=== PATIENT | female | born 1985 | race Caucasian/White ===

== ENCOUNTER 2017-02-01 12:11 | Day surgery (SDC) | payer OTHER ==
[2017-02-01] VITALS (9 sets, daily range): BP systolic 111–134; BP diastolic 75–81; PULSE 88–120; RESP 13–18; Ht 162.6 cm; Wt 72.0 kg
[~2017-02-01] VITALS: Ht 162.6 cm; Wt 72.0 kg
[2017-02-01] MEDS ORDERED: ROCURONIUM 50 MG INJ ONE (15:23)
[2017-02-01] MEDS ORDERED: PROPOFOL 20 ML ONE (15:23)
[2017-02-01] MEDS ORDERED: GLYCOPYRROLATE 0.4 MG INJ ONE ×2 (15:23→16:01)
[2017-02-01] MEDS ORDERED: LIDOCAINE 2% (SDV) 5 ML INJ ONE (15:23)
[2017-02-01] MEDS ORDERED: NEOSTIGMINE 3 MG/3 ML SYRINGE ONE ×2 (15:23→16:01)
[2017-02-01] MEDS ORDERED: SUCCINYLCHOLINE CHLORIDE 100 MG/5 ML SYG IV ONE (15:23)
[2017-02-01] MEDS ORDERED: MEPERIDINE 100 MG INJ ONE (15:23)
[2017-02-01] MEDS ORDERED: CEFAZOLIN 1 GM INJ ONE (15:27)
[2017-02-01] MEDS ORDERED: BACITRACIN/POLYMYXIN 28.35 GM OINT TOP ONE (15:33)
[2017-02-01] MEDS ORDERED: COCAINE 4% 4 ML TOP ONE (15:33)
[2017-02-01] MEDS ORDERED: LIDOCAINE 1%/EPI 30 ML INJ ONE (15:33)
--- NOTE | 2017-02-01 15:47 | HPN ---
Date/Time of Note Date/Time of Note DATE: 02/01/17 TIME: 15:47 Interval H&P Admission Note Pt. seen H&P reviewed: No system changes LOU TOMAS MD Feb 01, 2017 15:47
[2017-02-01] MEDS ORDERED: METOCLOPRAMIDE 10 MG INJ ONE (15:59)
[2017-02-01] MEDS ORDERED: ONDANSETRON 4 MG INJ ONE (15:59)
--- NOTE | 2017-02-01 16:18 | OPR ---
Date/Time of Note Date/Time of Note DATE: 02/01/17 TIME: 16:16 Operative Report Procedure Date: Feb 01, 2017 Preoperative Diagnosis DNS, ITH Postoperative Diagnosis Same Operation Performed Septoplasty with submucous resection of inferior turbinates. Surgeon: LOU TOMAS MD Anesthesia: general Estimated Blood Loss: minimal Complications: None Pt Condition Post Procedure: stable Disposition: PACU Indications Nasal congestion. Operative\Procedure Findings Description of procedure: The patient was identified in the holding area. We had a discussion to confirm understanding of all indications risks benefits alternatives and postoperative care associated with the operation. The patient signed informed consent was taken to the operating room. The patient was laid supine on the operating room table and general anesthesia was achieved without difficulty. The face was draped in sterile fashion and the nose was packed with 4% cocaine pledgets. The nasal septum was infiltrated with 5 cc of 1% lidocaine with epinephrine in the submucoperiosteal plane bilaterally. A left sided [place] incision was made and submucoperichondreal flaps were raised. The bony cartilaginous junction of the septum was identified and entered. A deviated segments of bone and cartilage were isolated. A double- action scissor was used to transect the bony deviated segment of the skull base after which a Spring forcep was used to resect deviated segment of bone and cartilage. Care was taken to avoid excess cartilaginous resection. The flaps were returned to normal position and anterior rhinoscopy reveals midline septum. At this point the right inferior turbinate was medialized with a [place] elevator. The Coblation wand on a setting of 6 was used to enter the turbinate in the inferior medial submucosal compartment. 10 seconds of Coblation were performed at the 3rd 2nd and 1st lynch after which the turbinate was crushed laterally into the lateral nasal wall with a [place] elevator. The contralateral turbinate was addressed in similar fashion to complete the bilateral submucous resection and lateral fracturing of the inferior turbinates. Septal splints were placed and secured with a 40 fast-absorbing gut whip stitch. A Merocel pack was placed on each side. The patient was awakened, extubated and taken to the PACU in stable condition. Complications: None. LOU TOMAS MD Feb 01, 2017 16:18
[2017-02-01] MEDS ORDERED: HYDROCODONE/APAP (5/325) TAB PO PRN (16:30)
== END 2017-02-01 17:41 | disposition home or self-care (01) ==
LOC: SDS 12:11
PROVIDERS: ATTEND Otolaryngology
DX: J34.2 Deviated nasal septum (principal); J34.3 Hypertrophy of nasal turbinates
CPT/HCPCS: 30140; 30520; 84703; J0330; J0690; J2175; J2405; J2765; Z7512; Z7610; J2710